=== PATIENT | female | born 1975 | race Caucasian/White ===

== ENCOUNTER 2018-03-18 19:10 | Emergency (ER) | payer BC ==
[2018-03-18] MEDS ORDERED: Sodium Chloride 0.9% 10 ML Syringe FLUSH PRN (19:17)
[2018-03-18] MEDS ORDERED: Famotidine 20 MG/2 ML SDV IVPUSH ONE (19:17)
--- NOTE | 2018-03-18 19:17 | EDM.PDOC ---
ED HPI GENERAL MEDICAL PROBLEM - General Chief Complaint: General Stated Complaint: facial numbness Time Seen by Provider: 03/18/18 19:15 Source of Information: Reports: Family (), Old Records ([facility] chart/EMR) History Limitations: Reports: No Limitations - History of Present Illness INITIAL COMMENTS - FREE TEXT/NARRATIVE: Patient was brought to the emergency room via private automobile by her for evaluation of recurrent nonspecific left facial numbness with symptoms starting at work at about 8 AM this morning. Symptoms were associated with some nausea and lasted for about 2 hours and then resolved spontaneously without treatment. Symptoms did recur at about 16:15 hours this afternoon with some improvement by the time of arrival to our emergency room. No history of recent headaches, visual changes, diplopia, dysarthria, change in mental status, or other change in neurological status. The patient denies any chest pain/pressure , heart flutter, dizziness, orthostasis, orthopnea, diaphoresis, paresthesias, recent decreased exercise tolerance, or any other anginal-type symptoms. No recent history of abdominal pain, heartburn, nausea, diarrhea, melena, gross hematochezia, or any food intolerance, including fatty foods, etc.. She denies any recent UTI symptoms including urinary frequency, colic, hematuria, etc. The patient also denies any recent fever, cough, wheezing, dyspnea, etc.. Onset: Today, Sudden Onset Date: 03/18/18 Onset Time: 08:00 Duration: Intermittent Location: Reports: Face. 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 Denies: Allergic Rhinitis, Glaucoma, Hard of Hearing, Macular Degeneration, Retinal Detachment Other HEENT History: Patient wears glasses. Cardiovascular History: Reports: Arrhythmia, Heart Murmur, Other (See Below). Denies: Afib, Aneurysm, Blood Clots/VTE/DVT, CAD, High Cholesterol, Hypertension , SC, PVD, Syncope Other Cardiovascular History: History of borderline bradycardia PVCs and presyncope on 01/21/11. Benign heart murmur during stull installer with spontaneous resolution. Respiratory History: Reports: None. Denies: Asthma, Bronchitis, Recurrent, COPD , Intubation, Previous, PE, Pneumothorax, Sleep Apnea Gastrointestinal History: Reports: Gastritis, GERD, PUD, Other (See Below). Denies: Celiac Disease, Cholelithiasis, Chronic Constipation, Chronic Diarrhea, Fecal Incontinence, GI Bleed, Hepatitis, Inflammatory Bowel Disease, Irritable Bowel Syndrome, Jaundice, Pancreatitis Other Gastrointestinal History: Peptic ulcer disease in about 2008 Genitourinary History: Reports: None. 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 Premature delivery at 34 weeks gestation requiring NICU. Preclampsia with which delivered at 34 weeks. Otherwise, Full term without complications during pregnancies or deliveries. Fibrocystic breast disease. Musculoskeletal History: Reports: Arthritis, Back Pain, Chronic, Fracture, Neck Pain, Chronic, Osteoarthritis, Other (See Below). Denies: Amputation, Gout, RA , SLE Other Musculoskeletal History: Left Fifth metacarpal fracture at about age 15. Bilateral Torres's cysts. Neurological History: Reports: None, Headaches, Chronic. Denies: Cerebral Aneurysms, Concussion, CVA, Head Trauma, Migraines, MS, Parkinson's, Seizure, TIA, Vertigo Psychiatric History: Reports: Anxiety, Depression. Denies: Abuse, Victim of, ADD, ADHD, Addiction, Psych Hospitalization(s), PTSD, Suicide Attempt, Suicidal Ideation Endocrine/Metabolic History: Denies: Diabetes, Gestational, Diabetes, Type I, Diabetes, Type II, Diabetes Mellitus, Type 3c, Hypothyroidism, IDDM Hematologic History: Reports: None. Denies: Anemia, Blood Transfusion(s), Iron Deficiency Immunologic History: Reports: None. Denies: AIDS, HIV, SLE Oncologic (Cancer) History: Reports: None. Denies: Basal Cell Carcinoma, Cervix , Hodgkin's Lymphoma, Leukemia, Lymphoma, Malignant Melanoma, Non-Hodgkin's Lymphoma, Squamous Cell Carcinoma Dermatologic History: Reports: None. Denies: Eczema, Psoriasis - Infectious Disease History Infectious Disease History: Reports: Chicken Pox. Denies: C-Difficile, Measles , Meningitis, Mononucleosis, MRSA, Mumps, Pertussis (Whooping Cough), Rheumatic Fever, Rubella, Scarlet Fever, Shingles, VRE - Past Surgical History Head Surgeries/Procedures: Reports: None HEENT Surgical History: Reports: Oral Surgery, Other (See Below). Denies: Adenoidectomy, Eye Surgery, Laser Surgery, LASIK, Myringotomy w Tube(s), Naso- Sinus Surgery, Tonsillectomy Other HEENT Surgeries/Procedures: Multiple teeth extractions Cardiovascular Surgical History: Reports: Varicose Other Cardiovascular Surgeries/Procedures: Varicose vein tripping the left leg in about 2011 Respiratory Surgical History: Reports: None. Denies: Thoracentesis GI Surgical History: Reports: EGD. Denies: Appendectomy, Cholecystectomy, Colonoscopy, Hernia, Abdominal, Hernia Repair/Other, Pepito Fundoplication, Polypectomy Other GI Surgeries/Procedures: EGD on 01/23/11. Female Surgical History: Reports: Tubal Ligation, Other (See Below). Denies : Breast Biopsy, D&C, Hysterectomy Other Female Surgeries/Procedures: Bilateral tubal ligation in 2007. Endocrine Surgical History: Reports: None. Denies: Thyroid Biopsy Neurological Surgical History: Reports: None. Denies: C-Spine, Discectomy, Laminectomy, Lumbar Spine, Sacral Spine, Spinal Fusion, Thoracic Spine, Vertebroplasty Musculoskeletal Surgical History: Reports: None. Denies: Arthroscopic Procedure , Carpal Tunnel, Ganglion Cyst, Joint Replacement, ORIF, Shoulder Surgery Oncologic Surgical History: Reports: None Dermatological Surgical History: Reports: Skin Biopsy, Other (See Below) Other Dermatological Surgeries/Procedures: Excision of benign skin lesions from the back and left cheek - Past Imaging History Past Imaging History: Reports: Cardiac Echo (Last on 01/13/17 with ejection fraction of 5560 percent with previous evaluation on 01/21/11), Mammogram (Last on 11/18/17), MRI (MRI of the right elbow on 08/30/13. RI of the right foot on 04/05/13.), Swallow Study (04/12/17 and 02/27/11), Ultrasound (Pelvic ultrasound on . Ultrasound of the right breast on 04/21/13.), Venous Doppler (Venous Doppler studies of the right leg on 04/30/17 and 12/14/15 with bilateral venous Doppler studies of the lower extremities on 01/24/11.). Denies: Angiography Social & Family History - Tobacco Use Smoking Status *Q: Never Smoker Tobacco Use Within Last Twelve Months: No Used Tobacco, but Quit: No Smoking Cessation Information Provided To Patient: No Second Hand Smoke Exposure: No Second Hand Smoke Education Provided: No - Caffeine Use Caffeine Use: Reports: Coffee (1 large cup per day). Denies: Energy Drinks, Soda, Tea - Alcohol Use Alcohol Use History: No Days Per Week of Alcohol Use: 0 Number of Drinks Per Day: 0 Number of Drinks Per Day Comment: No previous DWIs, problems with alcohol abuse , etc. Total Drinks Per Week: 0 Alcohol Use in Last Twelve Months: No - Recreational Drug Use Recreational Drug Use: No Drug Use in Last 12 Months: No Recreational Drug Type: Denies: Amphetamines (Speed), Cocaine, Heroin, Inhalants (Glues, Solvents, Aerosols), LSD (Acid), Marijuana/Hashish, Methamphetamine, Morphine, Oxycodone - Sexual History Sexual History: Reports: Multiple Partners - Living Situation & Occupation Living situation: Reports: (Second and 2002 with 2 children from this relationship.), (1999 with 2 children from that marriage and previous daughter from a previous significant other relationship) Occupation: Employed ([employer]) ED ROS GENERAL - Review of Systems Review Of Systems: ROS reveals no pertinent complaints other than HPI. ED EXAM, GENERAL - Physical Exam Exam: See Below Exam Limited By: No Limitations General Appearance: Alert, WD/WN, No Apparent Distress, Anxious (Moderate) Eye Exam: Bilateral Eye: EOMI, Normal Fundi, Normal Inspection (No nystagmus), PERRL Ears: Normal External Exam, Normal Canal, Hearing Grossly Normal, Normal TMs Nose: Normal Inspection, Normal Mucosa, No Blood Throat/Mouth: Normal Inspection, Normal Lips, Normal Teeth (Multiple missing teeth), Normal Gums, Normal Oropharynx, Normal Voice, No Airway Compromise. No : Dysphagia, Perioral Cyanosis Head: Atraumatic, Normocephalic. No: Facial Swelling, Facial Tenderness, Sinus Tenderness Neck: Normal Inspection, Supple, Non-Tender, Full Range of Motion. No: Carotid Bruit, Lymphadenopathy (L), Lymphadenopathy (R), Thyromegaly Respiratory/Chest: No Respiratory Distress, Lungs Clear, Normal Breath Sounds, No Accessory Muscle Use, Chest Non-Tender. No: Pleural Rub, Retractions Cardiovascular: Normal Peripheral Pulses, Regular Rate, Rhythm, No Edema, No Gallop, No JVD, No Murmur, No Rub. No: Gallop/S3, Gallop/S4, Friction Rub Peripheral Pulses: 2+: Radial (L), Radial (R), Dorsalis Pedis (L), Dorsalis Pedis (R) GI/Abdominal: Normal Bowel Sounds, Soft, Non-Tender, No Organomegaly, No Distention, No Abnormal Bruit, No Mass, Pelvis Stable, Other (Obese). No: Guarding (Female) Exam: Deferred Rectal (Female) Exam: Deferred Back Exam: Normal Inspection, Full Range of Motion. No: CVA Tenderness (L), CVA Tenderness (R), Muscle Spasm Extremities: Normal Inspection, Normal Range of Motion, Non-Tender, No Pedal Edema, Normal Capillary Refill. No: Sharon's Sign Neurological: Alert, Oriented, CN II-XII Intact, Normal Cognition, Normal Gait, Normal Reflexes (Negative Babinski's, finger to nose, and pronator rotation tests. No evidence of facial paresis, tongue deviation, orthostasis, etc.. Excellent reverse thought processes.), No Motor/Sensory Deficits Psychiatric: Anxious (Moderate), Depressed Mood (Moderate), Tearful. No: Flat Affect Skin Exam: Warm, Dry, Intact, Normal Color, No Rash, Stud(s) (Left nasal), Tattoo(s) (Multiple) Lymphatic: No Adenopathy EKG INTERPRETATION EKG Date: 03/18/18 Time: 19:27 Rhythm: NSR Rate (Beats/Min): 79 [place]: Normal (Neutral cardiac axis) P-Wave: Present (Diffuse biphasic P wavesmild) QRS: Normal (0.08 seconds with mild repolarization changes) ST-T: Other (T inversion in lead V1, V2, and aVL) QT: Normal MA/PQ Interval: 0.14 seconds representing a short MA interval with no delta waves noted Comparison: Change From Previous EKG (New T wave inversions in leads V2 and aVL since last EKG on 10/29/11) EKG Interpretation Comments: 1. Borderline anterior wall cardiac ischemia versus artifact from lead placement 2. Short MA interval 3. Repolarization changes Course - Vital Signs Last Recorded V/S: Last Vital Signs Temp 37.2 C 03/18/18 20:28 Pulse 74 03/18/18 20:28 Resp 16 03/18/18 20:28 BP 142/75 H 03/18/18 20:28 Pulse Ox 99 03/18/18 20:28 Vital Signs - 24 hr 03/18/18 03/18/18 03/18/18 19:13 19:17 19:56 Temperature [ 37.3 C 37.7 C 37.7 C Temporal] Pulse, 99 77 75 Peripheral [ Pulse Oximetry] Respiratory 16 18 16 Rate Blood Pressure 159/88 H 131/95 H 140/79 [Left Upper Arm ] O2 Sat by Pulse 100 98 100 Oximetry 03/18/18 03/18/18 03/18/18 20:09 20:28 20:41 Temperature [ 37.7 C 37.2 C 37.1 C Temporal] Pulse, 80 74 83 Peripheral [ Pulse Oximetry] Respiratory 16 16 16 Rate Blood Pressure 142/78 H 142/75 H 138/74 [Left Upper Arm ] O2 Sat by Pulse 100 99 98 Oximetry Also, see E-med sheet - Orders/Labs/Meds Orders: Active Orders 24 hr Category Date Time Status Blood Glucose Check, Bedside [RC] STAT Care 03/18/18 19:17 Active Cardiac Monitoring [RC] STAT Care 03/18/18 19:17 Active EKG Documentation Completion [RC] ASDIRECTED Care 03/18/18 19:17 Active NIH Stroke Scale [RC] ASDIRECTED Care 03/18/18 19:17 Active Oxygen Therapy, ED [RC] CONTINUOUS Care 03/18/18 19:17 Active Peripheral IV Care [RC] . DIRECTED Care 03/18/18 19:17 Active Pulse Oximetry [RC] CONTINUOUS Care 03/18/18 19:17 Active Up With Assistance [RC] ASDIRECTED Care 03/18/18 19:17 Active Vital Signs [RC] PFP Care 03/18/18 19:17 Active Nothing per Oral Now Diet [DIET] Diet 03/18/18 Breakfast Active Chest 1V Frontal [CR] Stat Exams 03/18/18 19:17 Ordered Head wo Cont [CT] Stat Exams 03/18/18 19:17 Taken PROLACTIN [REF] Stat Lab 03/18/18 19:15 Received Sodium Chloride 0.9% [Saline Flush] Med 03/18/18 19:17 Active 10 ml FLUSH ASDIRECTED PRN Obtain Past Medical Record [OM.PC] Stat Oth 03/18/18 19:17 Active Peripheral IV Insertion Adult [OM.PC] Stat Oth 03/18/18 19:17 Ordered Resuscitation Status Stat Resus Stat 03/18/18 19:17 Ordered Medication Orders Sodium Chloride (Saline Flush) 10 ml FLUSH ASDIRECTED PRN PRN Reason: Keep Vein Open Last Admin: 03/18/18 19:51 Dose: 10 ml Labs: Laboratory Tests 03/18/18 03/18/18 03/18/18 Range/Units 19:15 19:15 19:15 WBC 9.1 (4.0-10.2) K/uL RBC 4.77 (3.77-5.09) M/uL Hgb 14.0 (11.7-15.5) g/dL Hct 42.1 (34.0-46.0) % MCV 88.3 (84.0-98.0) fL MCH 29.4 (28.2-33.3) pg MCHC 33.3 (31.7-36.0) g/dL RDW 12.3 (11.2-14.1) % Plt Count 254 (150-350) K/uL Neut % (Auto) 61.5 (45.0-80.0) % Lymph % (Auto) 30.2 (10.0-50.0) % [place] % (Auto) 7.1 (2.0-14.0) % Eos % (Auto) 0.9 (0.0-5.0) % Baso % (Auto) 0.3 (0.0-2.0) % Neut # (Auto) 5.57 (1.40-7.00) K/uL Lymph # (Auto) 2.73 (0.50-3.50) K/uL [place] # (Auto) 0.64 (0.00-1.00) K/uL Eos # (Auto) 0.08 (0.00-0.50) K/uL Baso # (Auto) 0.03 (0.00-0.20) K/uL PT 10.1 (9.8-11.7) SEC INR 0.9 APTT 23.8 (22.1-29.8) SEC D-Dimer, Quantitative 291 (0-400) ng/mL Sodium (136-145) mmol/L Potassium (3.5-5.1) mmol/L Chloride (98-107) mmol/L Carbon Dioxide (21.0-32.0) mmol/L BUN (7-18) mg/dL Creatinine (0.51-1.17) mg/dL Est Cr Clr Drug Dosing mL/min Estimated GFR (MDRD) mL/min Glucose (74-106) mg/dL Lactic Acid (0.4-2.0) mmol/L Uric Acid (2.6-7.2) mg/dL Calcium (8.5-10.1) mg/dL Magnesium (1.8-2.4) mg/dL Total Bilirubin (0.2-1.0) mg/dL AST (15-37) U/L ALT (12-78) U/L Alkaline Phosphatase (46-116) IU/L Creatine Kinase (26-308) U/L Creatine Kinase Index (0.0-2.5) % CK-MB (CK-2) (0.00-3.60) ng/mL Troponin I (0.000-0.056) ng/mL NT-Pro-B Natriuret Pep (0-125) pg/mL Total Protein (6.4-8.2) g/dL Albumin (3.4-5.0) g/dL TSH, Ultra Sensitive (0.358-3.740) mIU/mL HCG, Qual (NEGATIVE) 03/18/18 03/18/18 03/18/18 Range/Units 19:15 19:15 19:15 WBC (4.0-10.2) K/uL RBC (3.77-5.09) M/uL Hgb (11.7-15.5) g/dL Hct (34.0-46.0) % MCV (84.0-98.0) fL MCH (28.2-33.3) pg MCHC (31.7-36.0) g/dL RDW (11.2-14.1) % Plt Count (150-350) K/uL Neut % (Auto) (45.0-80.0) % Lymph % (Auto) (10.0-50.0) % [place] % (Auto) (2.0-14.0) % Eos % (Auto) (0.0-5.0) % Baso % (Auto) (0.0-2.0) % Neut # (Auto) (1.40-7.00) K/uL Lymph # (Auto) (0.50-3.50) K/uL [place] # (Auto) (0.00-1.00) K/uL Eos # (Auto) (0.00-0.50) K/uL Baso # (Auto) (0.00-0.20) K/uL PT (9.8-11.7) SEC INR APTT (22.1-29.8) SEC D-Dimer, Quantitative (0-400) ng/mL Sodium 137 (136-145) mmol/L Potassium 3.6 (3.5-5.1) mmol/L Chloride 101 (98-107) mmol/L Carbon Dioxide 27.9 (21.0-32.0) mmol/L BUN 18 (7-18) mg/dL Creatinine 0.75 (0.51-1.17) mg/dL Est Cr Clr Drug Dosing 73.74 mL/min Estimated GFR (MDRD) > 60 mL/min Glucose 103 (74-106) mg/dL Lactic Acid 0.4 (0.4-2.0) mmol/L Uric Acid 4.0 (2.6-7.2) mg/dL Calcium 9.6 (8.5-10.1) mg/dL Magnesium 2.1 (1.8-2.4) mg/dL Total Bilirubin 0.3 (0.2-1.0) mg/dL AST 26 (15-37) U/L ALT 28 (12-78) U/L Alkaline Phosphatase 47 (46-116) IU/L Creatine Kinase 466 H (26-308) U/L Creatine Kinase Index 1.1 (0.0-2.5) % CK-MB (CK-2) 5.20 H* (0.00-3.60) ng/mL Troponin I 0.000 (0.000-0.056) ng/mL NT-Pro-B Natriuret Pep 69 (0-125) pg/mL Total Protein 7.9 (6.4-8.2) g/dL Albumin 3.9 (3.4-5.0) g/dL TSH, Ultra Sensitive 1.434 (0.358-3.740) mIU/mL HCG, Qual Negative (NEGATIVE) Prolactin level drawn with results pending Meds: Medications Generic Name Dose Route Start Last Admin Trade Name Freq PRN Reason Stop Dose Admin Sodium Chloride 10 ml 03/18/18 19:17 03/18/18 19:51 Saline Flush FLUSH 10 ml ASDIRECTED PRN Administration Keep Vein Open Discontinued Medications Generic Name Dose Route Start Last Admin Trade Name Freq PRN Reason Stop Dose Admin Famotidine 40 mg 03/18/18 19:17 03/18/18 19:51 Pepcid IVPUSH 03/18/18 19:18 40 mg ONETIME ONE Administration - Radiology Interpretation Free Text/Narrative:: monitoring analyst shows normal sinus rhythm with heart rate in the 80s with no ectopy or arrhythmia Chest x-ray, portable, is normal with no evidence of pulmonary infiltrates, pneumothorax, cardiomegaly, CHF, etc. Telephone consultation at 19:55 with the radiology department at [facility] with verbal report of noncontrast CT scan of the head. No acute findings noted. Borderline small ventricles of unknown significance with no true evidence of cerebral edema, etc. CT Results Date: 03/18/18 CT Results Time: 19:55 Departure - Departure Time of Disposition: 21:00 Disposition: Home, Self-Care 01 Condition: Good Clinical Impression: Paresthesia, Peptic reflux disease, Elevated CK, Mixed anxiety depressive disorder Osteoarthritis Qualifiers: Osteoarthritis location: multiple joints Osteoarthritis type: primary Qualified Code(s): M15.0 - Primary generalized (osteo)arthritis - Discharge Information *PRESCRIPTION DRUG MONITORING PROGRAM REVIEWED*: Not Applicable *COPY OF PRESCRIPTION DRUG MONITORING REPORT IN PATIENT HIPOLITO: Not Applicable Prescriptions: Citalopram Hydrobromide [Celexa] 10 mg PO DAILY #14 tablet Ubidecarenone [Coenzyme Q10] 100 mg PO TID #90 cap Instructions: Paresthesia, [id number] Referrals: Wanda Deal PA-C [Primary Care Provider] - Forms: ED Department Discharge Additional Instructions: 1. Followup with your regular provider in 7 days as directed for reevaluation and recommended repeat basic metabolic panel, CK, CK-MB, troponin I and EKG. Bring these discharge instructions with you to that visit. 2. Work excuse- See Form 3. BenGay or equivalent, heating pad, and/or ice packs as directed. 4. Tylenol 650 mg by mouth every 4 hours and/or OTC ibuprofen 2-3 tabs by mouth every 6 hours with food as directed./needed. 5. Discuss with your regular provider at follow-up recent change in medications and recommended initiation of spiritual, emotional, and marriage counseling as discussed. Bring actual medication bottles to the follow-up visit. 6. Immediately after this visit verify that your cellular telephone's voicemail has been activated and is empty. Also verify that your home telephone 's answering machine is operating properly and has space to receive messages. Note that it is sometimes necessary for us to be able to contact you at a later date to discuss your medical care. - Problem List & Annotations (1) Paresthesia SNOMED Code(s): 15052273 Code(s): R20.2 - PARESTHESIA OF SKIN Status: Acute Priority: High Onset Date: 03/18/18 Annotation/Comment:: Stroke code called by the nurses on the patient's arrival to this facility with E-med already activated by the nurses. Various therapeutic options were discussed with the patient and her , including transfer to [facility] for MRI of the brain. No direct indication of CVA or TIA at this time with patient and her electing no further evaluation at this time. Note emotional stressors as below. Symptoms improved at time of discharge. [employer] Work excuse provided (2) Mixed anxiety depressive disorder SNOMED Code(s): 975772552 Code(s): F41.8 - OTHER SPECIFIED ANXIETY DISORDERS Status: Acute Priority : High Annotation/Comment:: Initial private conversation with the patient's concerning their current marital problems. He does acknowledge that they did have a big fight yesterday evening and observed his earlier this morning with onset of her above symptoms. She was crying at the time with emotional component to patient's current symptoms based on his history. They have had brief previous marital counseling secondary to his 's infidelity, which was apparently also an issue in her first marriage with this also resulting in a divorce. Subsequent brief counseling both with the patient and her concerning her current emotional stressors. Per her patient' s son was put in correction about 1.5 years ago, which has added to her stressors. She also has been recently exhibiting extreme episodes of rage and anger, however no violent behavior, suicidal ideation, danger of abuse to family members, injury to others, etc.. The importance of marital counseling, spiritual counseling, medical therapy, and possible psychotherapy counseling were extensively discussed. Emotional support was provided. Various therapeutic options were discussed with the patient agreeing to initiate low-dose Celexa therapy with close follow-up by her regular provider and further dosage adjustment depending on her clinical course. Note distant previous Lexapro therapy per medical records. (3) Elevated CK SNOMED Code(s): 863123983 Code(s): R74.8 - ABNORMAL LEVELS OF OTHER SERUM ENZYMES Status: Acute Priority: High Onset Date: 03/18/18 Annotation/Comment:: Moderately elevated CK elevation likely secondary to physical activity in her work environment versus possible neuropathic myositis. No evidence of rashes, renal failure, etc. Initiate coenzyme Q10 and encouragement of oral fluids with close follow-up by regular provider as per discharge instructions. Consider muscle biopsy depending on her clinical course. Note elevated CK-MB, however otherwise normal cardiac enzymes, including troponin I and CK index. Nonspecific EKG changes with no true anginal complaints and no direct indication of significant coronary artery disease. Continue to observe closely with cardiac workup depending on her clinical course. (4) Osteoarthritis SNOMED Code(s): 830016956 Code(s): M19.90 - UNSPECIFIED OSTEOARTHRITIS, UNSPECIFIED SITE Status: Chronic Priority: Medium Annotation/Comment:: Otherwise stable by history. Qualifiers: Osteoarthritis location: multiple joints Osteoarthritis type: primary Qualified Code(s): M15.0 - Primary generalized (osteo)arthritis (5) Peptic reflux disease SNOMED Code(s): 614585396 Code(s): K21.9 - GASTRO-ESOPHAGEAL REFLUX DISEASE WITHOUT ESOPHAGITIS Status: Chronic Priority: Medium Annotation/Comment:: Previous history of distant gastric ulcer with no recent complaints including required use of OTC antacids, etc. High-dose IV Pepcid given as GI prophylaxis. - Problem List Review Problem List Initiated/Reviewed/Updated: Yes - My Orders Last 24 Hours: My Active Orders 03/18/18 19:15 PROLACTIN [REF] Stat 03/18/18 19:17 Blood Glucose Check, Bedside [RC] STAT Cardiac Monitoring [RC] STAT EKG Documentation Completion [RC] ASDIRECTED NIH Stroke Scale [RC] ASDIRECTED Oxygen Therapy, ED [RC] CONTINUOUS Peripheral IV Care [RC] . DIRECTED Pulse Oximetry [RC] CONTINUOUS Up With Assistance [RC] ASDIRECTED Vital Signs [RC] PFP Chest 1V Frontal [CR] Stat Head wo Cont [CT] Stat Sodium Chloride 0.9% [Saline Flush] 10 ml FLUSH ASDIRECTED PRN Obtain Past Medical Record [OM.PC] Stat Peripheral IV Insertion Adult [OM.PC] Stat Resuscitation Status Stat 03/18/18 Breakfast Nothing per Oral Now Diet [DIET] - Assessment/Plan Last 24 Hours: My Active Orders 03/18/18 19:15 PROLACTIN [REF] Stat 03/18/18 19:17 Blood Glucose Check, Bedside [RC] STAT Cardiac Monitoring [RC] STAT EKG Documentation Completion [RC] ASDIRECTED NIH Stroke Scale [RC] ASDIRECTED Oxygen Therapy, ED [RC] CONTINUOUS Peripheral IV Care [RC] . DIRECTED Pulse Oximetry [RC] CONTINUOUS Up With Assistance [RC] ASDIRECTED Vital Signs [RC] PFP Chest 1V Frontal [CR] Stat Head wo Cont [CT] Stat Sodium Chloride 0.9% [Saline Flush] 10 ml FLUSH ASDIRECTED PRN Obtain Past Medical Record [OM.PC] Stat Peripheral IV Insertion Adult [OM.PC] Stat Resuscitation Status Stat 03/18/18 Breakfast Nothing per Oral Now Diet [DIET] Assessment:: As above Plan: As above. Extensive precautions were given to the patient and her , who are in agreement with the treatment plan. See Patient Instructions for further treatment and plan.
[2018-03-18 19:45] LABS: CHLORIDE,CL 101 mmol/L (98-107); SODIUM,NA 137 mmol/L (136-145)
== END 2018-03-18 21:00 | disposition home or self-care (01) ==
LOC: LL.ED 19:10
DX: R20.2 Paresthesia of skin (principal); K21.9 Gastro-esophageal reflux disease without esophagitis; R74.8 Abnormal levels of other serum enzymes; F41.8 Other specified anxiety disorders; M15.0 Primary generalized (osteo)arthritis; Z88.1 Allergy status to other antibiotic agents; Z88.5 Allergy status to narcotic agent; Z79.899 Other long term (current) drug therapy
CPT/HCPCS: 36415; 70450; 71045; 80053; 82550; 82553; 83605; 83735; 83880; 84146; 84443; 84484; 84550; 84703; 85025; 85379; 85610; 85730; 93005; 96374; 99285; J3490; J7050

== ENCOUNTER 2022-12-06 09:01 | Emergency (ER) | payer BC, OTHER ==
[2022-12-06 09:06] VITALS: BP 165/92; PULSE 72
[2022-12-06] MEDS: Lidocaine 2% 5 ML SDV INJECT ONE (10:05)
[2022-12-06] MEDS: Bacitracin/Neomycin/Polymyxin B Oint 0.9 GM U/D Packet TOP ONE (10:06)
== END 2022-12-06 11:20 | disposition home or self-care (01) ==
LOC: LL.ED 09:01
DX: S61.011A Laceration without foreign body of right thumb without damage to nail, initial encounter (principal); Z88.1 Allergy status to other antibiotic agents; Z88.5 Allergy status to narcotic agent; W26.8XXA Contact with other sharp object(s), not elsewhere classified, initial encounter; Y99.0 Civilian activity done for income or pay
CPT/HCPCS: 12002; 73140-F5; 99283; J3490

== ENCOUNTER 2024-11-03 11:25 | Emergency (ER) | payer BC ==
[2024-11-03 11:33] VITALS: PULSE 66
[2024-11-03] MEDS: diphenhydrAMINE 50 MG/ML SDV IM ONE (12:19)
[2024-11-03 12:33] VITALS: BP 151/85
== END 2024-11-03 12:45 | disposition home or self-care (01) ==
LOC: LL.ED 11:25
DX: R00.2 Palpitations (principal); T37.5X5A Adverse effect of antiviral drugs, initial encounter; Z88.1 Allergy status to other antibiotic agents; Z88.5 Allergy status to narcotic agent; Z79.899 Other long term (current) drug therapy
CPT/HCPCS: 96372; 99283; J1200